=== PATIENT | male | born 1980 | race Caucasian/White ===

== ENCOUNTER 2017-01-20 09:46 | Emergency (ER) | payer BC ==
[2017-01-20] MEDS ORDERED: Ketorolac Tromethamine 60 MG/2 ML VIAL ONE (10:53)
[2017-01-20] MEDS ORDERED: Cyclobenzaprine 10 MG TAB ONE (10:53)
[2017-01-20] MEDS ORDERED: HYDROcodone/Acetaminophen 10/325 mg Tablet ONE (10:53)
== END 2017-01-20 11:23 | disposition home or self-care (01) ==
LOC: ERS 09:46
DX: S86.111A Strain of other muscle(s) and tendon(s) of posterior muscle group at lower leg level, right leg, initial encounter (principal); X50.9XXA Other and unspecified overexertion or strenuous movements or postures, initial encounter
CPT/HCPCS: 96372; J1885